=== PATIENT | male | born 1950 | race Caucasian/White ===

== ENCOUNTER 2019-11-02 12:40 | Emergency (ER) | payer MEDICARE ==
[2019-11-02 14:05] VITALS: BP 210/97
--- NOTE | 2019-11-02 14:10 | ER Document Report ---
HPI - HPI Time Seen by Provider: 11/02/19 14:00 Pain Level: 4 Context: CHIEF COMPLAINT: Left dental pain since last night HPI: 68-year-old male presenting to the emergency department complaining of dental pain left lower second premolar. Patient states that he has had pain and problems with this tooth previously that required antibiotics. Patient did take aspirin with some relief with his discomfort. Denies neck pain. Denies chest pain. Denies other complaints at this time ROS: See HPI - all other systems were reviewed and are otherwise negative Constitutional: no fever Eyes: no drainage, no blurred vision ENT: no runny nose, no sore throat, positive dental pain Cardiovascular: no chest pain Resp: no SOB, no cough GI: no vomiting, no diarrhea, no abdominal pain : no dysuria Integumentary: no rash Allergy: no hives Musculoskeletal: no extremity pain or swelling Neurological: no numbness/tingling, no weakness MEDICATIONS: I agree with the patient medications as charted by the RN. ALLERGIES: I agree with the allergies as charted by the RN. PAST MEDICAL HISTORY/PAST SURGICAL HISTORY: Reviewed and agree as charted by RN. SOCIAL HISTORY: Reviewed and agree as charted by RN. FAMILY HISTORY: No significant familial comorbid conditions directly related to patient complaint EXAM: Reviewed vital signs as charted by RN. CONSTITUTIONAL: Alert and oriented and responds appropriately to questions. Well-appearing; well-nourished HEAD: Normocephalic; atraumatic EYES: PERRL; Conjunctivae clear, sclerae non-icteric ENT: normal nose; no rhinorrhea; moist mucous membranes; pharynx without lesions noted, no uvula edema or deviation, no tonsillar hypertrophy, phonation normal. Left lower second premolar noted to have fracture off the posterior aspect of the tooth with no sublingual swelling, no gingival swelling. No mandibular swelling. No trismus. NECK: Supple without meningismus; non-tender; no cervical lymphadenopathy, no masses. No bruit CARD: RRR; no murmurs, no clicks, no rubs, no gallops; symmetric distal pulses RESP: Normal chest excursion without splinting or tachypnea; breath sounds clear and equal bilaterally; no wheezes, no rhonchi, no rales ABD/GI: Normal bowel sounds; non-distended; soft, non-tender, no rebound, no guarding; no palpable organomegaly or masses. BACK: The back appears normal and is non-tender to palpation, there is no CVA tenderness EXT: Normal ROM in all joints; non-tender to palpation; no cyanosis, no effusions, no edema SKIN: Normal color for age and race; warm; dry; good turgor; no acute lesions noted NEURO: Moves all extremities equally; Motor and sensory function intact PSYCH: The patient's mood and manner are appropriate. Grooming and personal hygiene are appropriate. MDM: 68-year-old male presenting with dental pain. States he has had problems with this in the past and took clindamycin with relief of symptoms. Patient was noted to be significantly hypertensive here. We rechecked the patient's blood pressure and it was 210/97. I discussed this with the patient at length. I did express our concerns for possible other etiologies for his dental pain including cardiac origin given his hypertension. Patient believes that his hypertension is secondary to his dental discomfort. I did offer further work-up including lab work, EKG, cardiac evaluation and blood pressure management. Patient states he does not want further work-up at this time. He is aware we cannot rule out a cardiac origin given his symptoms and his blood pressure. He is aware of the risks of disability and . I did offer to place the patient on medication for his blood pressure which he declines. Patient states that he would prefer a referral to a medical doctor for follow-up of his blood pressure. He states that he does check it at home and normally he runs in the 1 30-1 40 range systolic - REPRODUCTIVE Reproductive: DENIES: : Past Medical History - Social History Smoking Status: Unknown if Ever Smoked Chew tobacco use (# tins/day): No Frequency of alcohol use: Social Drug Abuse: None Family History: Reviewed & Not Pertinent Patient has suicidal ideation: No Patient has homicidal ideation: No Vertical Provider Document - INFECTION CONTROL TRAVEL OUTSIDE OF THE [place] IN LAST 30 DAYS: No Course - Vital Signs Vital signs: Temp Pulse Resp BP Pulse Ox 98.0 F 105 H 210/97 H 95 11/02/19 12:55 11/02/19 14:04 11/02/19 14:04 11/02/19 12:55 Discharge - Discharge Clinical Impression: Pain, dental HTN (hypertension) Qualifiers: Hypertension type: unspecified Qualified Code(s): I10 - Essential (primary) hypertension Condition: Fair Disposition: HOME, SELF-CARE Instructions: High Blood Pressure ([facility]), Toothache ([facility]) Additional Instructions: Take the medications as prescribed, no driving if taking narcotics for pain. It was noted to your blood pressure was significantly elevated you declined further work-up and evaluation for this or treatment for this. Please follow-up with a primary care provider to have your blood pressure rechecked and reevaluated. Blood pressure that is significantly elevated like this can lead to heart issues and heart attacks or strokes. If you have worsening pain or develop neck pain or chest pain please return for reevaluation Prescriptions: Clindamycin HCl 150 mg PO QID 7 Days #28 capsule Hydrocodone/Acetaminophen [[place] 5-325 mg Tablet] 1 tab PO Q4 PRN #10 tablet PRN Reason:
== END 2019-11-02 14:27 | disposition home or self-care (01) ==
LOC: ER 12:40
DX: K08.89 Other specified disorders of teeth and supporting structures (principal); I10 Essential (primary) hypertension
CPT/HCPCS: 99282